=== PATIENT | female | born 1950 | race American Indian/Alaskan Native ===

== ENCOUNTER 2017-02-04 08:45 | Day surgery (SDC) | payer MEDICARE ==
[2017-01-27 09:55] VITALS: BMI 26.4
[2017-02-04] MEDS ORDERED: Sodium Chloride 0.9% 1,000 ML IV SCH (10:00)
[2017-02-04] MEDS ORDERED: Propofol 10 mg/ml Inj (20 ML) ONE (10:00)
[2017-02-04 16:14] VITALS: TEMP 97.4
[2017-02-04 16:15] VITALS: O2SAT 100
[2017-02-04 16:18] VITALS: BP 127/76; PULSE 58; RESP 18
== END 2017-02-04 12:52 | disposition home or self-care (01) ==
LOC: ENDO 08:45
PROVIDERS: ATTEND Specialist
DX: D12.0 Benign neoplasm of cecum (principal); D12.2 Benign neoplasm of ascending colon; D12.3 Benign neoplasm of transverse colon; I10 Essential (primary) hypertension; K63.5 Polyp of colon; K21.9 Gastro-esophageal reflux disease without esophagitis; Z85.3 Personal history of malignant neoplasm of breast; K64.8 Other hemorrhoids; K57.30 Diverticulosis of large intestine without perforation or abscess without bleeding; Z12.11 Encounter for screening for malignant neoplasm of colon
CPT/HCPCS: 45380; 45381; 45385; 88305; J2001; J2704; J7040 ×2

== ENCOUNTER 2019-01-16 16:16 | Emergency (ER) | payer MEDICARE | END 2019-01-16 18:57 | disposition home or self-care (01) | LOC: ED 16:16 ==